=== PATIENT | female | born 2000 | race Two or more races ===

== ENCOUNTER 2023-01-29 00:57 | Emergency (ER) | payer OTHER ==
[2023-01-29 01:36] LABS: BASO % 0.5 % (0.0-1.0); EOS % 0.4 % (0.0-3.0); HEMATOCRIT 39.5 % (36.0-47.0); HEMOGLOBIN 13.3 g/dl (12.0-15.5); LYMPH % 34.8 % (24.0-44.0); MEAN CORPUSCULAR HEMOGLOBIN 30.4 pg (27.0-33.0); MEAN CORPUSCULAR HGB CONC 33.7 g/dl (32.0-36.5); MEAN CORPUSCULAR VOLUME 90.4 fl (80.0-96.0); MONO # 0.5 10^3/uL (0.0-0.8); NEUTROPHILS # 3.2 10^3/uL (1.5-8.5); NEUTROPHILS % 55.9 % (36.0-66.0); PLATELET COUNT, AUTOMATED 196 10^3/uL (150-450); RED BLOOD COUNT 4.37 10^6/uL (4.00-5.40); WHITE BLOOD COUNT 5.7 10^3/uL (4.0-10.0)
[2023-01-29 01:55] LABS: ETHYL ALCOHOL (ETHANOL) < 0.003 % (0.000-0.010)
[2023-01-29 01:57] LABS: ALBUMIN 3.9 G/DL (3.2-5.2); ALKALINE PHOSPHATASE 60 U/L (46-116); ALT/SGPT 20 U/L (7.0-40); AST/SGOT 20 U/L (<34); BILIRUBIN,DIRECT 0.2 MG/DL (<0.4); BILIRUBIN,TOTAL 0.5 MG/DL (0.3-1.2); BLOOD UREA NITROGEN 14 MG/DL (9-23); CALCIUM LEVEL 7.5 MG/DL (8.5-10.1); CARBON DIOXIDE LEVEL 26 MMOL/L (20-31); CHLORIDE LEVEL 105 MMOL/L (98-107); CREATININE FOR GFR 0.88 MG/DL (0.55-1.30); GLOMERULAR FILTRATION RATE > 60.0 (>60); GLUCOSE, FASTING 101 MG/DL (60-100); POTASSIUM SERUM 3.9 MMOL/L (3.5-5.1); SODIUM LEVEL 140 MMOL/L (136-145); TOTAL PROTEIN 6.5 G/DL (5.7-8.2)
[2023-01-29 02:00] LABS: THYROID STIMULATING HORMONE 1.019 uIU/ML (0.55-4.78)
[2023-01-29 02:16] LABS: AMPHETAMINES LEVEL URINE NEGATIVE (NEGATIVE); BARBITURATES URINE NEGATIVE (NEGATIVE); BENZODIAZEPINES URINE NEGATIVE (NEGATIVE); CANNABINOIDS URINE POSITIVE (NEGATIVE); COCAINE METABOLITE URINE NEGATIVE (NEGATIVE); METHADONE URINE NEGATIVE (NEGATIVE); OPIATES URINE NEGATIVE (NEGATIVE); PHENCYCLIDINE URINE NEGATIVE (NEGATIVE)
[2023-01-29 02:20] LABS: RSV AMPLIFICATION NEGATIVE (NEGATIVE)
[2023-01-29 09:04] VITALS: BP 115/70
== END 2023-01-29 09:26 | disposition home or self-care (01) ==
LOC: M ED 00:57
DX: F12.10 Cannabis abuse, uncomplicated (principal)

== ENCOUNTER → 2023-11-08 | Outpatient (CLI) | payer OTHER | LOC: M WHC 07:42 | PROVIDERS: ATTEND Physician Assistant | DX: N64.4 Mastodynia (principal); N60.01 Solitary cyst of right breast; N60.12 Diffuse cystic mastopathy of left breast ==

== ENCOUNTER 2024-03-04 22:47 | Emergency (ER) | payer OTHER ==
[~2024-03-04] VITALS: Ht 160 cm; Wt 69.3 kg
[2024-03-05] MEDS ORDERED: BENA25CA4 PO ×2 (01:38→02:55)
[2024-03-05] MEDS ORDERED: PRED20TA PO ×2 (01:38→02:55)
[2024-03-05] MEDS: methylPREDNISolone 125MG 2ML VIAL IM ONE (02:03)
[2024-03-05 02:22] VITALS: BP 131/58; TEMP 97.8; O2SAT 99
== END 2024-03-05 02:20 | disposition home or self-care (01) ==
LOC: M ED 22:47
DX: L50.9 Urticaria, unspecified (principal)
CPT/HCPCS: 96372; 99283; J2919

== ENCOUNTER 2024-03-07 13:02 | Emergency (ER) | payer OTHER ==
[~2024-03-07] VITALS: Ht 160 cm; Wt 68.5 kg
[~2024-03-07 13:02] MED LIST: BENA25CA4 PO; PRED20TA PO
[2024-03-07 13:03] VITALS: BP 129/68; TEMP 98; O2SAT 99
[2024-03-07] MEDS ORDERED: VALA500T5 PO (13:06)
[2024-03-07] MEDS: methylPREDNISolone 125MG 2ML VIAL IM ONE (13:53)
== END 2024-03-07 14:03 | disposition home or self-care (01) ==
LOC: M ED 13:02
DX: L50.1 Idiopathic urticaria (principal); Z79.899 Other long term (current) drug therapy
CPT/HCPCS: 96372; 99283; J2919

== ENCOUNTER 2024-03-09 00:13 | Emergency (ER) | payer OTHER ==
[~2024-03-09] VITALS: Ht 160 cm; Wt 68.7 kg
[2024-03-09 00:13] VITALS: BP 126/74; TEMP 98.3; O2SAT 98
[~2024-03-09 00:13] MED LIST changes: +VALA500T5 PO
[2024-03-09] MEDS ORDERED: PEPC1TAB5 PO (05:44)
[2024-03-09] MEDS ORDERED: PRED20TA PO (05:44)
[2024-03-09] MEDS: methylPREDNISolone 125MG 2ML VIAL IM ONE (05:58)
[2024-03-09] MEDS: FAMOTIDINE 20 MG TAB PO ONE (05:58)
== END 2024-03-09 06:19 | disposition home or self-care (01) ==
LOC: M ED 00:13
DX: L50.9 Urticaria, unspecified (principal)
CPT/HCPCS: 96372; 99283; J2919

== ENCOUNTER 2024-03-21 14:37 | Emergency (ER) | payer OTHER ==
[~2024-03-21] VITALS: Ht 167.6 cm; Wt 70.6 kg
[~2024-03-21 14:37] MED LIST changes: +PEPC1TAB5 PO
[2024-03-21 14:38] VITALS: BP 131/76; TEMP 97.5; O2SAT 99
== END 2024-03-21 16:23 | disposition home or self-care (01) ==
LOC: M ED 14:37
DX: S46.911A Strain of unspecified muscle, fascia and tendon at shoulder and upper arm level, right arm, initial encounter (principal); X58.XXXA Exposure to other specified factors, initial encounter; Y92.9 Unspecified place or not applicable; Y93.89 Activity, other specified; Y99.1 Military activity; Z79.899 Other long term (current) drug therapy

== ENCOUNTER → 2024-05-04 | Outpatient (CLI) | payer OTHER ==
[~2024-05-04] MED LIST changes: +ISOVUE-300 61% 100ML VIAL As Ordered ONE; +LIDOCAINE 1% MDV 20ML VIAL As Ordered ONE; +PROHANCE 279.3MG/ML 5ML VIAL As Ordered ONE
== END ==
LOC: M RAD 08:46
PROVIDERS: ATTEND Physician Assistant
DX: M25.511 Pain in right shoulder (principal); S43.401A Unspecified sprain of right shoulder joint, initial encounter; X58.XXXA Exposure to other specified factors, initial encounter; Y92.9 Unspecified place or not applicable
CPT/HCPCS: 23350; 73223; 77002; A9576; Q9967